=== PATIENT | male | born 1995 | race Caucasian/White ===

== ENCOUNTER 2018-04-11 07:49 | Emergency (ER) | payer OTHER, SELFPAY ==
[2018-04-11 07:50] VITALS: BP 132/75; PULSE 81; RESP 18; TEMP 36.4; O2SAT 98; BMI 35.2
--- NOTE | 2018-04-11 08:01 | ED.RN ---
[email or web address] will be enroute
--- NOTE | 2018-04-11 08:20 | RAD_ITS ---
STUDY: X-RAY - LEFT HAND, ATTENTION INDEX FINGER REASON FOR EXAM: Male, 22 years old. Pain following smashing injury. TECHNIQUE: 3 view(s) of the finger were obtained. COMPARISON: None. FINDINGS: Normal metacarpal head. Normal metacarpophalangeal joint. Normal proximal phalanx. Normal middle phalanx. Normal distal phalanx. Normal proximal interphalangeal joint. Normal distal interphalangeal joint. RAD/Finger(s) Min 2 Views IMPRESSION: Normal x-ray examination of the finger. Electronically Signed: Marcello Amin MD at 8:37 EST Tel [phone], Service support ,
--- NOTE | 2018-04-11 08:28 | ED.VISSUMM ---
- ER Visit Summary Date of Service: 04/11/18 Chief Complaint: Finger injury History of Present Illness: The patient is a 22 M who was at work today when he sustained a crush injury to the left index finger. Last tetanus was 2008. He denies other injuries. Physical Examination: Afebrile vital signs stable Gen: Well-nourished well-developed Head: Normocephalic atraumatic Eyes: Perrl EOMI ENT: TMs clear no rhinorrhea moist mucous membranes Neck: Supple no lymphadenopathy no JVD nontender CVS: Regular rate rhythm no murmurs normal S1-S2 Respiratory: No distress clear to auscultation bilaterally chest nontender Abdomen: Soft nontender nondistended normal bowel sounds no masses Back: Nontender Extremity: There is swelling from the middle phalanx distally of the left index finger. There is superficial abrasions medial and lateral on the finger. There is no subungual hematoma. Painful range of motion. Skin: Normal color no rash Neuro: alert orientated ?3 CN II-XII intact normal strength sensation reflexes gait cerebellar Psych: Normal affect normal mood Test Results: Finger films were obtained. Emergency Department Course and Treatment: Tetanus was updated using Adacel. Wounds were cleansed and washed and dressed with bacitracin. AlumaFoam splint placed. [facility] Impression: 1. Left index finger crush injury 2. Tetanus update 3. Left index finger abrasions This note was generated with [employer] dictation software. It may contain incorrect words, spelling, and punctuation that were not noted in review of the chart prior to signing ED Disposition - Plan for ED Patient: Disposition: Home or Assisted Living Chief Complaint: Upper Extremity Injury Instructions: ED Crush Injury Finger No Fx Referrals: [facility] [GROUP OF PHYSICIANS] - 3-5 Days
--- NOTE | 2018-04-11 08:32 | ED.DCSUM_ITS ---
- ER Visit Summary Date of Service: 04/11/18 Chief Complaint: Finger injury History of Present Illness: The patient is a 22 M who was at work today when he sustained a crush injury to the left index finger. Last tetanus was 2008. He denies other injuries. Physical Examination: Afebrile vital signs stable Gen: Well-nourished well-developed Head: Normocephalic atraumatic Eyes: Perrl EOMI ENT: TMs clear no rhinorrhea moist mucous membranes Neck: Supple no lymphadenopathy no JVD nontender CVS: Regular rate rhythm no murmurs normal S1-S2 Respiratory: No distress clear to auscultation bilaterally chest nontender Abdomen: Soft nontender nondistended normal bowel sounds no masses Back: Nontender Extremity: There is swelling from the middle phalanx distally of the left index finger. There is superficial abrasions medial and lateral on the finger. There is no subungual hematoma. Painful range of motion. Skin: Normal color no rash Neuro: alert orientated ?3 CN II-XII intact normal strength sensation reflexes gait cerebellar Psych: Normal affect normal mood Test Results: Finger films were obtained. Emergency Department Course and Treatment: Tetanus was updated using Adacel. Wounds were cleansed and washed and dressed with bacitracin. AlumaFoam splint placed. [facility] Impression: 1. Left index finger crush injury 2. Tetanus update 3. Left index finger abrasions This note was generated with [employer] dictation software. It may contain incorrect words, spelling, and punctuation that were not noted in review of the chart prior to signing ED Disposition - Plan for ED Patient: Disposition: Home or Assisted Living Chief Complaint: Upper Extremity Injury Instructions: ED Crush Injury Finger No Fx Referrals: [facility] [GROUP OF PHYSICIANS] - 3-5 Days
[2018-04-11] MEDS: Diphth,Pertuss(Acell),Tet Vac 0.5 ML Vial IM (09:25)
[2018-04-11] MEDS: Ibuprofen 600 MG Tablet PO (09:25)
== END 2018-04-11 09:42 | disposition home or self-care (01) ==
PROVIDERS: Emergency Provider Emergency Medicine
DX: S67.191A Crushing injury of left index finger, initial encounter (principal); S60.411A Abrasion of left index finger, initial encounter; X58.XXXA Exposure to other specified factors, initial encounter; Y93.9 Activity, unspecified; Y92.9 Unspecified place or not applicable; Z23 Encounter for immunization
CPT/HCPCS: 73140; 90715; 99284

== ENCOUNTER 2018-08-29 07:56 | Emergency (ER) | payer OTHER, SELFPAY ==
[2018-08-29 07:56] VITALS: BP 124/78; PULSE 84; RESP 16; TEMP 36.5; O2SAT 97; BMI 36.2
[2018-08-29] MEDS: 0.9% Normal Saline 1,000 ML 999 ML IV (09:06)
[2018-08-29] MEDS: DiphenhydrAMINE 50 MG/ML Syringe 25 MG IV (09:06)
[2018-08-29] MEDS: Metoclopramide 10 MG/2 ML Vial IV (09:06)
[2018-08-29] MEDS: Ketorolac 30 MG/ML Syringe IV (09:06)
--- NOTE | 2018-08-29 09:32 | ED.DCSUM_ITS ---
- ER Visit Summary Date of Service: 08/29/18 Chief Complaint: Headache History of Present Illness: The patient is a 22 M with history of migraine headaches. Patient states he has had a headache for the last for 5 days. He points to the bilateral temples and states it feels it is behind his eyes. It then radiates up across the top of his head. He has had nausea and vomiting along with light sensitivity. He states he will occasionally see dots. Patient states he gets migraines once or twice a month but is never been on medication to abort these. He will take Anacin at home when he gets a migraine. Physical Examination: Vital signs are unremarkable. Patient sitting in a darkened room in no acute distress. He is nontoxic appearing. Head and neck examination unremarkable. There is no meningismus. Heart is regular rate and rhythm. Lung sounds clear. Abdomen is soft nontender. Neuro exam is unremarkable. Test Results: [] Emergency Department Course and Treatment: Patient is treated with Toradol, Regl an, Benadryl, and IV fluids. On repeat evaluation pain is improved down to a 4. He will be discharged with prescription for the same meds that he can try at home if needed. He will also be referred to neurology for follow-up. Treatment Plan: [] Disposition: Discharge Impression: Migraine, improved This note was generated with [employer] dictation software. It may contain incorrect words, spelling, and punctuation that were not noted in review of the chart prior to signing ED Disposition - Plan for ED Patient: Disposition: Home or Assisted Living Instructions: ED Headache Migraine Prescriptions: DiphenhydrAMINE [Benadryl] 50 mg PO Q6H PRN PRN #10 capsule PRN Reason: Migraine Symptoms Ketorolac [Toradol] 10 mg PO Q6H PRN #10 tablet PRN Reason: Migraine Symptoms Metoclopramide [Reglan] 10 mg PO 4X/DAY PRN #10 tablet PRN Reason: Migraine Symptoms Referrals: Maximino Rashid MD [STAFF PHYSICIAN] - As soon as possible
[2018-08-29 10:34] VITALS: BP 143/56; PULSE 69; RESP 16; O2SAT 100
== END 2018-08-29 10:38 | disposition home or self-care (01) ==
PROVIDERS: Emergency Provider Emergency Medicine
DX: G43.909 Migraine, unspecified, not intractable, without status migrainosus (principal); F32.9 Major depressive disorder, single episode, unspecified; Z79.899 Other long term (current) drug therapy
CPT/HCPCS: 96361; 96374; 96375; 99283; J7030

== ENCOUNTER 2018-09-20 14:24 | Emergency (ER) | payer OTHER, SELFPAY ==
[2018-09-20 14:25] VITALS: BP 142/76; PULSE 89; RESP 16; TEMP 36.8; O2SAT 97; BMI 40.6
--- NOTE | 2018-09-20 15:25 | CT_ITS ---
STUDY: CT BRAIN WITHOUT CONTRAST REASON FOR EXAM: Male, 22 years old. Headache RADIATION DOSAGE (If Supplied By Facility): CTDIvol = ( 60.81 ) mGy, DLP = ( 998.67 ) mGycm TECHNIQUE: Transaxial CT imaging of the brain was performed without administration of intravenous contrast material. Individualized dose optimization techniques were used for this CT. COMPARISON: No relevant priors. FINDINGS: Normal soft tissue structures. Normal calvarium. Normal size ventricles and extra-axial spaces for the patient's age. Normal white matter tracts of the cerebral hemispheres. Normal basal ganglia and thalami. Normal brainstem. Normal cerebellum. There is no intracranial hemorrhage. There are no findings of an acute ischemic infarction. Normal visualized paranasal sinuses. CT/Brain/Head without Contrast IMPRESSION: Normal unenhanced CT scan of the brain. Electronically Signed: Mario Boss, at 16:12 EDT Tel , Service support ,
--- NOTE | 2018-09-20 15:35 | ED.VIS.GEN ---
History of Present Illness Chief Complaint: Headache Informant: Patient Onset: Days - 3 Narrative: Waxing and waning migraine headache symptoms for the past 3 days. Pain bilateral temporal region radiates to the back. Photophobia and phonophobia. Nausea without vomiting. Reports that he has history of chronic migraines has seen Dr. Rashid. He reports he is on daily medicines and a breakthrough medicine however cannot recall the name. Medication use has not helped symptoms. Spent in the ED in the past. Reports he would like reimaging of his head, reports has not been done in years. Denies falls or head injuries. Prior similar symptoms: Yes Past Medical History - Allergies and Home Meds Allergies/Adverse Reactions: Allergies No Known Allergies Allergy (Verified 09/20/18 14:26) Primary Care Physician: NOT,DEFINED [NON-STAFF] - Smoking Status: Never smoker Review of Systems General: Denies: Chills, Fever, Sweats Eyes: Denies: Visual changes - bilaterally, Diplopia ENT: Denies: Rhinorrhea, Sore throat Cardiovascular: Denies: Chest pain, Palpitations Respiratory: Denies: Dyspnea, Cough, Dyspnea on exertion Gastrointestinal: Reports: Nausea. Denies: Abdominal pain, Vomiting, Diarrhea, Melena, Hematochezia Genitourinary: Denies: Dysuria, Hematuria, Frequency Musculoskeletal: Denies: Back pain, Extremity Pain Skin: Denies: Rash, Wounds Neurological: Reports: Headache. Denies: Weakness, Numbness Physical Exam Vital Signs/Narrative: Vital Signs Temp Pulse Resp BP Pulse Ox 09/20/18 14:25 98.2 F 89 16 142/76 H 97 Inital Vital Signs reviewed: Yes General: Well nourished, Well developed, No Acute Distress Head: Normocephalic, Atraumatic Eyes: Perrl, EOMI ENT: Moist mucous membranes, No rhinorrhea Neck: Supple, Nontender, - - No meningismus Cardiovascular: Regular rate, Regular rhythm, No murmurs Respiratory: No distress, CTA bilaterally, Chest nontender Abdomen: Soft, Nontender, Nondistended, Normal bowel sounds Back: Nontender, Normal Inspection Extremities: Nontender, No edema Skin: Normal color, No rash Neurological: Alert, Oriented x3, Cranial nerves II-XII grossly intact, Normal Strength, Normal Sensation Psychological: Normal affect, Normal Mood Diagnostic/Tx/Re-eval CT brain: No acute process - Medical Decision Making Patient with no focal neurologic deficits. Present with similar migraine symptoms. Requesting reimaging with CT, he understand the risk of increased radiation. This was obtained and negative. Treated Reglan Benadryl and IV fluids. On reevaluation symptoms were improving and tolerable. He did not want any further medications. Discussed with patient follow-up with his neurologist Dr. Rashid for reevaluation and medication adjustments as needed. All questions were answered. ED Disposition - Plan for ED Patient: Disposition: Home or Assisted Living Diagnosis: Migraine headache Instructions: HEADACHE, Migraine (Classical) Referrals: NOT,DEFINED [NON-STAFF] - Maximino Rashid MD [STAFF PHYSICIAN] - 5-7 Days
[2018-09-20] MEDS: 0.9% Normal Saline 1,000 ML 999 ML IV (15:38)
[2018-09-20] MEDS: DiphenhydrAMINE 50 MG/ML Syringe 25 MG IV (15:38)
[2018-09-20] MEDS: Metoclopramide 10 MG/2 ML Vial IV (15:39)
[2018-09-20 16:57] VITALS: BP 104/66; PULSE 68; RESP 16; O2SAT 99
== END 2018-09-20 16:58 | disposition home or self-care (01) ==
PROVIDERS: Emergency Provider Emergency Medicine
DX: G43.909 Migraine, unspecified, not intractable, without status migrainosus (principal)
CPT/HCPCS: 70450; 96361; 96374; 96375; 99283

== ENCOUNTER → 2019-10-12 10:34 | Outpatient (CLI) | payer BC, SELFPAY ==
[2019-10-12 10:06] VITALS: BMI 40.6
[2019-10-12 12:54] LABS: ALB/GLOB Ratio 1.1 RATIO (0.9-2.4); AST(SGOT) 12 U/L (15-37); Alanine Aminotransfer ALT/SGPT 19 U/L (16-61); Albumin, Serum 4.1 g/dL (3.2-5.0); Alkaline Phosphatase 87 U/L (45-117); Anion Gap 4 (5-15); BUN 15 mg/dL (7-18); BUN/Creat Ratio 17.5 RATIO (10-20); Calcium,Total 8.8 mg/dL (8.5-10.1); Chloride 109 mmol/L (98-107); Cholesterol 165 mg/dL (200); Creatinine, Serum 0.86 mg/dL (0.70-1.30); EST Glomerular Filtration Rate 116 mL/min (>60); Est Glom Filt Rate - Afr Amer 141 mL/min (>60); Globulin 3.7 g/dL (2.2-4.2); Glucose 97 mg/dL (74-106); High Density Lipoprotein 42 mg/dL; Potassium 4.1 mmol/L (3.5-5.1); Protein, Total 7.8 g/dL (6.4-8.2); Sodium Level 140 mmol/L (136-145); Thyroid Stim Hormone (TSH) 0.66 uIU/mL (0.358-3.74); Triglycerides 89 mg/dL; Very Low Density Lipoprotein 18 mg/dL (5-40)
[2019-10-12 13:04] LABS: Absolute Neutrophil Count 3.6 X10^3/uL (2.0-7.7); Basophil# 0.01 X10^3/uL; Basophil% 0.2 % (0-1); Eosinophil# 0.08 X10^3/uL; Eosinophils% 1.4 % (0-5); Hemoglobin 14.2 g/dL (13.0-16.5); Lymphocyte % 30.6 % (19-41); Mean Corp Hgb Conc 33.8 g/dL (32-36); Mean Corpuscular Hgb 29.3 pg (27.0-32.0); Mean Corpuscular Volume 86.6 fL (80-94); Mean Platelet Vol. 10.5 fl (6.2-12.0); Monocyte# 0.37 X10^3/uL; Monocyte% 6.3 % (0-10); NRBC Flagged by Analyzer 0 % (0-5); Neutrophil # 3.62 X10^3/uL (2.7-7.7); Neutrophil % 61.3 % (47-70); Platelet Count 259 K/mm3 (150-450); RBC Distribution Width SD 40.4 fl (35.1-43.9); Red Blood Count 4.85 M/mm3 (4.6-6.2); White Blood Count 5.9 K/mm3 (4.4-11.0)
== END ==
PROVIDERS: PCP Internal Medicine; Referring Provider Nurse Practitioner Family; Visit Provider Nurse Practitioner Family
DX: R40.0 Somnolence (principal); E66.01 Morbid (severe) obesity due to excess calories
CPT/HCPCS: 36415; 80053; 80061; 84443; 85025

== ENCOUNTER → 2019-10-18 12:50 | Outpatient (CLI) | payer BC, SELFPAY ==
[2019-10-12 10:06] VITALS: BMI 40.6
== END ==
PROVIDERS: PCP Internal Medicine; Visit Provider Nurse Practitioner Family
DX: R40.0 Somnolence (principal)
CPT/HCPCS: 95806

== ENCOUNTER 2019-11-14 15:54 | Outpatient (RCR) | payer BC, SELFPAY ==
[2019-10-12 10:06] VITALS: BMI 40.6
[2019-11-03 09:06] VITALS: BMI 42.4
== END 2019-11-27 23:59 ==
LOC: NS 15:54
PROVIDERS: PCP Internal Medicine; Visit Provider Nurse Practitioner Family
DX: Z71.3 Dietary counseling and surveillance (principal); E66.01 Morbid (severe) obesity due to excess calories
CPT/HCPCS: 97802

== ENCOUNTER → 2019-11-28 09:48 | Outpatient (CLI) | payer BC, SELFPAY ==
[2019-11-27 15:15] VITALS: BMI 40.6
== END ==
PROVIDERS: PCP Internal Medicine; Referring Provider Internal Medicine; Visit Provider Internal Medicine
DX: J02.9 Acute pharyngitis, unspecified (principal)
CPT/HCPCS: 87635; 87880; C9803; U0003

== ENCOUNTER 2019-12-26 16:00 | Outpatient (RCR) | payer BC, SELFPAY ==
[2019-11-27 15:15] VITALS: BMI 40.6
== END 2019-12-27 23:59 ==
LOC: NS 16:00
PROVIDERS: PCP Internal Medicine; Visit Provider Nurse Practitioner Family
DX: Z71.3 Dietary counseling and surveillance (principal); E66.01 Morbid (severe) obesity due to excess calories
CPT/HCPCS: 97803

== ENCOUNTER 2020-01-09 17:17 | Outpatient (RCR) | payer BC, SELFPAY ==
[2019-11-27 15:15] VITALS: BMI 40.6
== END 2020-01-09 23:59 | disposition home or self-care (01) ==
LOC: NS 17:17
PROVIDERS: PCP Internal Medicine; Visit Provider Nurse Practitioner Family
DX: Z71.3 Dietary counseling and surveillance (principal); E66.01 Morbid (severe) obesity due to excess calories
CPT/HCPCS: 97803